=== PATIENT | male | born 1965 | race Caucasian/White ===

== ENCOUNTER 2019-10-08 13:38 | Emergency (ER) | payer OTHER ==
[2019-10-08 13:50] VITALS: BP 148/97; PULSE 86; RESP 18; TEMP 98.2
--- NOTE | 2019-10-08 14:22 | XR ---
EXAMINATION TYPE: XR knee complete LT DATE OF EXAM: 10/08/2019 CLINICAL HISTORY: pain TECHNIQUE: Three views of the left knee are obtained. COMPARISON: None. FINDINGS: There is no acute fracture/dislocation. The tri-compartment joint spaces appear within no rmal limits. The overlying soft tissue appears unremarkable. IMPRESSION: There is no acute fracture or dislocation ICD 10 NO FRACTURE, INITIAL EVALUATION
[2019-10-08] MEDS ORDERED: ACET/COD 300 MG/30 MG STARTER PACK 6 TAB BTL PO STA (14:36)
--- NOTE | 2019-10-08 14:37 | ED ---
Extremity Problem HPI - General Chief complaint: Extremity Problem,Nontraumatic Stated complaint: L KNEE Swelling Time Seen by Provider: 10/08/19 13:52 Source: patient Mode of arrival: ambulatory Limitations: no limitations - History of Present Illness Initial comments: 54-year-old male presenting today for chief complaint of left knee pain for months. He states he had previous meniscus injury to the right knee and had laparoscopic surgery he states he feels like this is going on the left knee has been painful for months. He states the pain has been increasing in induration for the past week he states he does some mild swelling denies any redness denies fever or constitutional symptoms. Patient denies any inability to range the knee or difficulty weightbearing but states her knees motions do cause discomfort. No additional complaints or areas of injury denies any trauma or falls. - Related Data Previous Rx's Medication Instructions Recorded Ibuprofen 600 mg PO Q8H PRN 5 Days #15 tab 10/08/19 Allergies Allergy/AdvReac Type Severity Reaction Status Date / Time No Known Allergies Allergy Verified 10/08/19 13:50 Review of Systems ROS Statement: Those systems with pertinent positive or pertinent negative responses have been documented in the HPI. ROS Other: All systems not noted in ROS Statement are negative. Past Medical History Past Medical History: No Reported History History of Any Multi-Drug Resistant Organisms: None Reported Past Surgical History: No Surgical Hx Reported Past Psychological History: No Psychological Hx Reported Smoking Status: Never smoker Past Alcohol Use History: Daily Past Drug Use History: None Reported General Exam - General Exam Comments Initial Comments: General: The patient is awake and alert, in no distress Eye: +3 mm pupils are equal, round and reactive to light, extra-ocular movements are intact. No nystagmus. There is normal conjunctiva bilaterally. No signs of icterus. Cardiovascular: There is a regular rate and rhythm. No murmur, rub or gallop is appreciated. Respiratory: Lungs are clear to auscultation, respirations are non-labored, breath sounds are equal. No wheezes, stridor, rales, or rhonchi. Musculoskeletal: Upon special needs bilaterally there is no obvious soft tissue swelling. Patient has tenderness to compression of the joint line. Patient has no redness. Normal ROM of the knees and ankels b/l, with mild tenderness of the left knee. Strength 5/5 of the knees, ankles, and hips b/l. Sensation intact of the LE equal b/l including proximal and distal to injury site. DP and Radial pulses equal bilaterally 2+. Neurological: A&O x 3. CN II-XII intact grossly, There are no obvious motor or sensory deficits. Coordination appears grossly intact. Speech is normal. Skin: Skin is warm and dry and no rashes or lesions are noted. Psychiatric: Cooperative, appropriate mood & affect, normal judgment. Limitations: no limitations Course Vital Signs 10/08/19 10/08/19 13:47 14:56 Temperature 98.2 F 98.2 F Pulse Rate 86 86 Respiratory 18 18 Rate Blood Pressure 148/97 148/97 O2 Sat by Pulse 99 99 Oximetry Medical Decision Making - Medical Decision Making 54yo male presenting today for cc of left knee painx mnths. No injury. No redness or constitutional symptoms. XR (-). Ambulatory and neurovascularly intact. recommend discharge with orthopedic f/u for persistent symptoms. Disposition Clinical Impression: Left knee pain Disposition: HOME SELF-CARE Condition: Good Instructions (If sedation given, give patient instructions): Arthralgia (ED), Meniscus Tear (ED) Additional Instructions: Please use medication as discussed. Please follow-up with family doctor in the next 2 days of symptoms have not improved. Please return to emergency room if the symptoms increase or worsen or for any other concerns. Prescriptions: Ibuprofen 600 mg PO Q8H PRN 5 Days #15 tab PRN Reason: Pain Is patient prescribed a controlled substance at d/c from ED?: No Referrals: None,Stated [Primary Care Provider] - 1-2 days Morgan Dodd DO [Doctor of Osteopathic Medicine] - 1-2 days Time of Disposition: 14:35
== END 2019-10-08 14:56 | disposition home or self-care (01) ==
LOC: EC 13:38
DX: M25.562 Pain in left knee (principal); M79.89 Other specified soft tissue disorders
CPT/HCPCS: 99283

== ENCOUNTER → 2022-01-29 | Outpatient (CLI) | payer OTHER ==
--- NOTE | 2022-01-29 16:07 | US ---
EXAMINATION TYPE: US kidneys/renal and bladder DATE OF EXAM: 01/29/2022 COMPARISON: NONE CLINICAL HISTORY: R35.1 NOCTURIA. Nocturia for several years per patient. EXAM MEASUREMENTS: Right Kidney: 13.6 x 6.2 x 5.3 cm Left Kidney: 11.0 x 5.6 x 5.6 cm Post Void Residual Volume: 4.61 mL Right Kidney: Appears enlarged. No hydronephrosis or masses seen Left Kidney: Lobulated contour, appearance of possible Dromedary hump. Bladder: Appears anechoic. Bilateral Jets seen: Right jet seen during exam. Normal Post Void Residual: Yes Urinary Post void volume is 4.61 mL is normal. Prevoid volume is 193 mL IMPRESSION: Unremarkable renal ultrasound
== END | disposition home or self-care (01) ==
LOC: RADUSWWP 15:25
PROVIDERS: ATTEND Family Medicine
DX: R35.1 Nocturia (principal)
CPT/HCPCS: 76770

== ENCOUNTER → 2022-07-02 | Outpatient (CLI) | payer OTHER ==
--- NOTE | 2022-07-02 14:47 | P.SLEEP ---
History of Present Illness H&P Date: 07/02/22 Chief Complaint: Hypersomnia This is a 57-year-old male patient was referred to me for concerns of obstructive sleep apnea. The patient has loud snoring, sleep fragmentation, he has been told to quit breathing on multiple occasions throughout the night and he wakes up constantly either choking or gasping for air. He also has symptoms of paul when he gets up several times the middle of the night to urinate. He has been excessively fatigued and sleepy during the day and this is an ongoing problem for many years. He does chew tobacco. He also drinks alcohol and he states that he drinks approximately 12 pack beer a week. He also takes shots of whiskey. I think there is a concern for alcohol dependence in this patient. He has symptoms of peripheral neuropathy. He has constant jerks, pain and comfortable and electric sensation in his lower extremities especially at nighttime. He has also developed osteoarthritis and he has difficulties in maintaining sleep in the supine body position. He hasn't terms and he prefers to sleep on his sides. He has chronic pain and neuropathy which could be potentially alcoholic in nature. The patient was started on a combination of lytic Requip by his primary care physician. He is currently laid off. He is a union journeyman plumber. He goes to bed at around 11 PM, wakes up 5 AM in the morning and he averages around 5-6 hours of sleep. He can fall asleep at any time. He takes During the day. His weight is up by 30 pounds over this past 5 years at least. No history of any motor vehicle accident because of feeling drowsy or sleepy. However, he has felt sleepy and he is dear with while driving his car. He has a strong family history of obstructive sleep apnea. His current Archer score is 21. Comorbid conditions include hypertension, hyperlipidemia, neuropathy, chronic back pain and sciatica and history of depression. There is also an obvious concern for alcoholism. Review of Systems Constitutional: Reports daytime sleepiness, Reports fatigue, Reports weakness, Reports weight gain Eyes: denies as per HPI, denies blurred vision, denies bulging eye, denies decreased vision, denies diplopia, denies discharge, denies dry eye, denies ir ritation, denies itching, denies pain, denies photophobia, denies loss of peripheral vision, denies loss of vision, denies tunnel vision/blind spots Ears: deny: decreased hearing, ear discharge, earache, tinnitus Ears, nose, mouth and throat: Reports as per HPI Breasts: absent: as per HPI, gynecomastia Cardiovascular: Reports as per HPI Respiratory: Reports snoring Gastrointestinal: Reports as per HPI Genitourinary: Reports nocturia Musculoskeletal: Reports as per HPI (Neuropathy involving the lower extremities), Reports leg numbness/tingling, Reports shooting leg pain Musculoskeletal: absent: ankle pain, ankle stiffness, ankle swelling Integumentary: Reports as per HPI Neurological: Reports as per HPI Psychiatric: Reports as per HPI, Reports depression Endocrine: Reports as per HPI Hematologic/Lymphatic: Reports as per HPI Allergic/Immunologic: Reports as per HPI Past Medical History Past Medical History: No Reported History Additional Past Medical History / Comment(s): Hypertension, hyperlipidemia, peripheral neuropathy, erectile dysfunction, osteoarthritis, sciatica, depression, obesity History of Any Multi-Drug Resistant Organisms: None Reported Past Surgical History: No Surgical Hx Reported Additional Past Surgical History / Comment(s): No surgeries Past Psychological History: No Psychological Hx Reported Smoking Status: Former smoker (The patient also chews tobacco) Past Alcohol Use History: Daily Past Drug Use History: None Reported Medications and Allergies Home Medications and Allergies Comment(s): Patient is currently on aspirin 81 mg by mouth daily, Lipitor 40 mg by mouth daily, chlorthalidone 25 mg by mouth daily, Flonase nasal spray, ibuprofen 800 mg 4 times a day, and is up to 40 mg by mouth daily, Lyrica 50 mg twice a day, Requip 2 mg at bedtime, Viagra 20 mg on an as-needed basis Home Medications Medication Instructions Recorded Confirmed Type Ibuprofen 600 mg PO Q8H PRN 5 Days #15 tab 10/08/19 Rx Allergies Allergy/AdvReac Type Severity Reaction Status Date / Time No Known Allergies Allergy Verified 10/08/19 13:50 Physical Exam BP is 163/72 with a pulse of 102 and the respiration of 14, temperature is 97.9, pulse ox is 95% on room air, Archer score is at 21, body mass index of 38.3, w eight is 283 pounds and height is 6 feet. The size of the neck is 19 inches. Gen. appearance the patient is, comfortable no acute distress Head exam was generally normal. There was no scleral icterus or corneal arcus. Mucous membranes were moist. Neck was supple and without jugular venous distension, thyromegaly, or carotid bruits. Carotids were easily palpable bilaterally. There was no adenopathy. Poor dentition and poor dental conditions and the patient has a Mallampati class IV with crowding of the posterior pharynx Cardiac exam revealed the PMI to be normally situated and sized. The rhythm was regular and no extrasystoles were noted during several minutes of auscultation. The first and second heart sounds were normal and physiologic splitting of the second heart sound was noted. There were no murmurs, rubs, clicks, or gallops. Lungs were clear to auscultation and percussion, and with normal diaphragmatic excursion. No wheezes or rales were noted. Abdominal exam revealed normal bowel sounds. The abdomen was soft, non-tender, and without masses, organomegaly, or appreciable enlargement of the abdominal aorta. Examination of the extremities revealed easily palpable radial, femoral and pedal pulses. There was no cyanosis, clubbing or edema. Examination of the skin revealed no evidence of significant rashes, suspicious appearing nevi or other concerning lesions. Neurologically, the patient is awake and alert and the patient does not have any focal neurological deficit. Cranial nerves are essentially intact. Assessment and Plan Plan: Chronic hypersomnia, Archer score of 21 with increased likelihood for an underlying obstructive sleep apnea based on the clinical history and anatomic features. At same time the patient has sleep fragmentation probably related to underlying chronic peripheral neuropathy and alcoholism. As such, this may end up being a complex problem and multiple factors affecting the patient's sleep maintenance contributing to his chronic hypersomnia and sleepiness Loud snoring Neuropathy with chronic numbness and pain in lower extremities, currently on a combination of Lyrica ibuprofen and Requip Depression Hypertension Hyperlipidemia Osteoarthritis Obesity with a BMI 38.3 Plan It is recommended for this patient to maintain her regular sleep schedule. It is recommended for this patient to cut down on the alcohol drinking and refrain from drinking at least 3 hours prior to going to bed Continue to control the symptoms of neuropathy with a combination of Lyrica and ibuprofen. The dose of Lyrica can be further adjusted as Based on His Symptoms We'll set up the patient for a screening polysomnography to rule out the possibility of obstructive sleep apnea and assess the extent of sleep fragmentation and periodic limb movement if any Weight loss Continue same medications for now The patient will be contacted back following his polysomnography for further advice. Sleep Note - Sleep Note Sleep Note: Temperature: Pulse Rate: Respiratory Rate: Blood Pressure: SpO2: Height: Weight: BMI: Neck Circumference:
== END ==
LOC: SLEEP 13:59
PROVIDERS: ATTEND Internal Medicine Critical Care Medicine
DX: G47.33 Obstructive sleep apnea (adult) (pediatric) (principal); F32.A Depression, unspecified; I10 Essential (primary) hypertension; G60.9 Hereditary and idiopathic neuropathy, unspecified; E78.5 Hyperlipidemia, unspecified; M19.90 Unspecified osteoarthritis, unspecified site; E66.9 Obesity, unspecified; Z68.38 Body mass index [BMI] 38.0-38.9, adult; Z99.89 Dependence on other enabling machines and devices; Z87.891 Personal history of nicotine dependence
CPT/HCPCS: 99211

== ENCOUNTER → 2022-11-27 | Outpatient (CLI) | payer OTHER ==
--- NOTE | 2022-12-04 02:25 | SLS ---
SLEEP STUDY This is a CPAP titration report. HISTORY OF PRESENT ILLNESS: This patient is 57, diagnosed having severe DAHLIA along with nocturnal oxygen desaturation. The patient is coming in to undergo a CPAP titration. PERTINENT PHYSICAL FINDINGS: Height is 6 feet 0 inches, weight is 283 pounds, and a body mass index is 38.4. TECHNICAL DESCRIPTION: The sleep evaluation of the patient consisted of clinical polysomnography, nocturnal respiratory battery, left and right anterior tibialis surface electromyography. The standard montage for the clinical polysomnography included the EEG, EOG, EMG, and EKG. Respiratory battery included measurements of nasal/buccal airflow, thoracic, and/or abdominal effort and intercostal surface EMG. Nocturnal oxyhemoglobin saturations were obtained by finger oximetry. Digital video and audio monitoring were done throughout the entire night to check or parasomnias. Step-epps titration with positive airway pressure was utilized during the study to control the respiratory events. STUDY OVERVIEW: Total time in bed was 396 minutes. Total sleep time was 353.5 minutes and the sleep efficiency was calculated to be at 89.3%. Latency to sleep onset is 4.5 minutes. Latency to REM sleep is 56.5 minutes. The sleep architecture was characterized by 3.1% stage I, 54.3% stage II, 12.4% stage III, and a total of 30.1% REM sleep. RESPIRATORY ANALYSIS: The patient was started on CPAP therapy initially at a pressure of 4 cm of water and the pressure was gradually increased by increments of 1 cm to reach a maximum CPAP pressure of 20 cm of water. Note that the patient was also placed on BiPAP pressure of 24/20, 25/21 cm of water. I carefully reviewed the CPAP titration taking into account the patient's oxygenation and body position, and sleep stage. I noted that the patient was still having nocturnal oxygen desaturations and obstructive hypopneas especially during REM sleep. At the highest CPAP pressure of 20 cm of water, there were still obstructive hypopneas noted along with oxygen desaturation. Note that the BiPAP time spent was quite limited and not enough to make definitive conclusions on treatment success. In summary, CPAP therapy was not completely effective in eliminating obstructive respiratory events. High pressures may be needed and the patient may do better on BiPAP rather than a CPAP. SLEEP CONTINUITY ANALYSIS: The patient had a total of 52 arousals throughout the sleep study with an arousal index of 2.4. PERIODIC LIMB MOVEMENT SUMMARY: No significant periodic limb movement activity was noted. CARDIAC SUMMARY: Average heart rate was 87, minimum heart rate was 78, maximum heart rate was 95. IMPRESSION: 1. Severe symptomatic obstructive sleep apnea with an AHI of 48. Some optimal CPAP titration as the patient was unable to completely eliminate obstructive respiratory events and improve oxygenation while being on CPAP therapy. 2. Severe nocturnal oxygen desaturation secondary to above. 3. Chronic hypersomnia with [place] score of 21. 4. History of alcoholism. 5. History of peripheral neuropathy. 6. Depression. 7. Hypertension. 8. Hyperlipidemia. 9. Osteoarthritis. 10.Obesity with a BMI of 38. PLAN: We will offer the patient a BiPAP unit. I am going to offer the patient a VPAP auto. EPAP minimum of 10, maximum of 24 with a pressure support of 4. The patient is going to be offered the appropriate mask of choice. The patient was given a Simplus full- face mask [facility]. I am going to switch that mask to an AirFit F20, medium size. The patient will see me back in the office in 30 to 90 days to assess clinical response and compliance. He will make further recommendations and adjustments accordingly. MMODL / IJN: [id number] /
== END ==
LOC: 3 N SLEEP 20:08
PROVIDERS: ATTEND Internal Medicine Critical Care Medicine
DX: G47.33 Obstructive sleep apnea (adult) (pediatric) (principal)
CPT/HCPCS: 95811